=== PATIENT | male | born 1970 | race Caucasian/White ===

== ENCOUNTER 2018-05-25 09:38 | Emergency (ER) | payer BC, SELFPAY ==
[2018-05-25 09:39] VITALS: BP 158/85; PULSE 98; RESP 16; TEMP 36.4; BMI 30.8
--- NOTE | 2018-05-25 10:18 | CT_ITS ---
STUDY: CT ABDOMEN AND PELVIS WITHOUT CONTRAST REASON FOR EXAM: Male, 47 years old. Left flank pain radiating to the left lower quadrant RADIATION DOSAGE (If Supplied By Facility): CTDIvol = ( 17.30 ) mGy, DLP = ( 925.14 ) mGycm TECHNIQUE: Transaxial images were obtained from the dome of the diaphragm to the symphysis pubis without oral contrast, and without intravenous contrast. Sagittal and coronal images were reconstructed. Individualized dose optimization techniques were used for this CT. COMPARISON: None. FINDINGS: The visualized lung bases are unremarkable. The visualized portions of the heart are within normal limits. Normal liver. Normal gallbladder and extrahepatic biliary system. Normal spleen. Normal pancreas. Normal bilateral adrenal glands. Exophytic intermediate to low-density lesion of the right kidney measures 9 mm on image 45. No hydronephrosis of either kidney. No ureteral calcifications. Normal visualized stomach. Normal small intestine. Normal colon. The appendix is visualized and appears normal. Normal abdominal aorta. Normal inferior vena cava. Normal retroperitoneum. Normal urinary bladder. There are prostatic calcifications. Normal abdominal wall. There are diffuse degenerative changes of the visualized lumbar spine. CT/Abdomen/Pelvis without Cont IMPRESSION: 1. No hydronephrosis or urinary tract calcifications. 2. 9 mm right exophytic renal cyst, indeterminate. Electronically Signed: Gunner Mcgill MD at 11:24 EDT , Service support ,
--- NOTE | 2018-05-25 10:18 | ED.VISSUMM ---
- ER Visit Summary Date of Service: 05/25/18 Chief Complaint: Back pain History of Present Illness: The patient is a 47 M who presents with left flank pain. Patient states that yesterday he went to a trampoline park but did not jump. States that he did some lifting but nothing out of the ordinary but he noticed as the day went on he began to have some lower back pain. He states that this morning when he went to get out of bed he had severe sharp pain that wraps around towards the front towards his bladder. He states is very painful for him to try to stand. He noted some nausea. Significant other notes that he has had some darker than normal urine. No fevers. No dysuria. Normal bowel movements. The patient denies any rashes. He states that he is feeling better now but still notes some discomfort. Physical Examination: Afebrile vital signs stable Gen: Well-nourished well-developed Head: Normocephalic atraumatic Eyes: Perrl EOMI ENT: TMs clear no rhinorrhea moist mucous membranes Neck: Supple no lymphadenopathy no JVD nontender CVS: Regular rate rhythm no murmurs normal S1-S2 Respiratory: No distress clear to auscultation bilaterally chest nontender Abdomen: Soft nontender nondistended normal bowel sounds no masses Back: Mild tenderness in the left lower paraspinal musculature. Extremity: Nontender no edema Skin: Normal color no rash Neuro: alert orientated ?3 CN II-XII intact normal strength sensation reflexes gait cerebellar Psych: Normal affect normal mood Test Results: BMP was normal. Urinalysis showed no hematuria or infection. CT down pelvis demonstrate no ureterolithiasis. There is no hydronephrosis or perinephric stranding. No bowel inflammation. Emergency Department Course and Treatment: Patient received a dose of Toradol. The patient will have Toradol, a few [place], and Valium for muscle spasm at home. I believe this to be muscular in nature. I will write for a work note tomorrow. Impression: 1. Lumbar muscle spasm 2. Abdominal oblique muscle spasm/strain This note was generated with [employer] dictation software. It may contain incorrect words, spelling, and punctuation that were not noted in review of the chart prior to signing ED Disposition - Plan for ED Patient: Disposition: Home or Assisted Living Instructions: ED Spasm Back No Trauma Prescriptions: Hydrocodone Bitart/Apap 5-325 [[place] 5MG-325MG] 1 tab PO Q6H PRN PRN 3 Days #10 tab PRN Reason: Pain Diazepam [Valium] 5 mg PO Q8 PRN #10 tab PRN Reason: Muscle Spasm Ketorolac [Toradol] 10 mg PO Q8H PRN #15 tab PRN Reason: Pain Additional Instructions: Follow-up with primary care if not improving. Monitor for rashes as discussed.
--- NOTE | 2018-05-25 10:21 | ED.DCSUM_ITS ---
- ER Visit Summary Date of Service: 05/25/18 Chief Complaint: Back pain History of Present Illness: The patient is a 47 M who presents with left flank pain. Patient states that yesterday he went to a trampoline park but did not jump. States that he did some lifting but nothing out of the ordinary but he n oticed as the day went on he began to have some lower back pain. He states that this morning when he went to get out of bed he had severe sharp pain that wraps around towards the front towards his bladder. He states is very painful for him to try to stand. He noted some nausea. Significant other notes that he has had some darker than normal urine. No fevers. No dysuria. Normal bowel movements. The patient denies any rashes. He states that he is feeling better now but still notes some discomfort. Physical Examination: Afebrile vital signs stable Gen: Well-nourished well-developed Head: Normocephalic atraumatic Eyes: Perrl EOMI ENT: TMs clear no rhinorrhea moist mucous membranes Neck: Supple no lymphadenopathy no JVD nontender CVS: Regular rate rhythm no murmurs normal S1-S2 Respiratory: No distress clear to auscultation bilaterally chest nontender Abdomen: Soft nontender nondistended normal bowel sounds no masses Back: Mild tenderness in the left lower paraspinal musculature. Extremity: Nontender no edema Skin: Normal color no rash Neuro: alert orientated ?3 CN II-XII intact normal strength sensation reflexes gait cerebellar Psych: Normal affect normal mood Test Results: BMP was normal. Urinalysis showed no hematuria or infection. CT down pelvis demonstrate no ureterolithiasis. There is no hydronephrosis or perinephric stranding. No bowel inflammation. Emergency Department Course and Treatment: Patient received a dose of Toradol. The patient will have Toradol, a few [place], and Valium for muscle spasm at home. I believe this to be muscular in nature. I will write for a work note tomorrow. Impression: 1. Lumbar muscle spasm 2. Abdominal oblique muscle spasm/strain This note was generated with [employer] dictation software. It may contain incorrect words, spelling, and punctuation that were not noted in review of the chart prior to signing ED Disposition - Plan for ED Patient: Disposition: Home or Assisted Living Instructions: ED Spasm Back No Trauma Prescriptions: Hydrocodone Bitart/Apap 5-325 [[place] 5MG-325MG] 1 tab PO Q6H PRN PRN 3 Days #10 tab PRN Reason: Pain Diazepam [Valium] 5 mg PO Q8 PRN #10 tab PRN Reason: Muscle Spasm Ketorolac [Toradol] 10 mg PO Q8H PRN #15 tab PRN Reason: Pain Additional Instructions: Follow-up with primary care if not improving. Monitor for rashes as discussed.
[2018-05-25] MEDS: Ketorolac 30 MG/ML Syringe IV (10:27)
[2018-05-25 11:01] LABS: Anion Gap 4 (5-15); BUN 15 mg/dL (7-18); BUN/Creat Ratio 17.5 RATIO (10-20); Calcium,Total 8.4 mg/dL (8.5-10.1); Chloride 106 mmol/L (98-107); Creatinine, Serum 0.86 mg/dL (0.70-1.30); EST Glomerular Filtration Rate 103 mL/min (>60); Est Glom Filt Rate - Afr Amer 124 mL/min (>60); Estimated Creatinine Clearance 126.11 ml/min; Glucose 113 mg/dL (74-106); Potassium 3.7 mmol/L (3.5-5.1); Sodium Level 138 mmol/L (136-145)
[2018-05-25 11:07] LABS: Bacteria 0 SEEN /hpf (None Seen); Mucous, Urine 0 SEEN /hpf (<or=2+); Red Blood Cells-Urine 0 SEEN /hpf (0-5); Squamous Epithelial Cells - UA 0 SEEN /hpf (0-5); White Blood Cells 0 SEEN /hpf (0-5)
[2018-05-25 11:08] LABS: Color, Urine Yellow (Yellow); Glucose, Dipstick Normal (Normal); Ketone-Dipstick Negative (Negative); Leukocyte Esterase-Dipstick Negative /ul (Negative); Nitrite-Dipstick Negative (Negative); Occult Blood-Urine Negative /ul (Negative); Protein-Dipstick Negative (Negative); Specific Gravity, Urine 1.015 (1.002-1.030); Urine Bilirubin Dipstick Negative (Negative); Urine Clarity Clear (Clear); Urine Urobilinogen Normal (Normal)
[2018-05-25 12:35] VITALS: BP 158/85; PULSE 89; RESP 16; O2SAT 98
== END 2018-05-25 12:35 | disposition home or self-care (01) ==
PROVIDERS: Emergency Provider Emergency Medicine; Family Provider Family Medicine; PCP Family Medicine
DX: S39.011A Strain of muscle, fascia and tendon of abdomen, initial encounter (principal); X50.9XXA Other and unspecified overexertion or strenuous movements or postures, initial encounter; Y93.89 Activity, other specified; Y92.838 Other recreation area as the place of occurrence of the external cause; M62.838 Other muscle spasm; M62.830 Muscle spasm of back
CPT/HCPCS: 74176; 80048; 81001; 96374; 99282; A4216